=== PATIENT | female | born 1990 | race American Indian/Alaskan Native ===

== ENCOUNTER 2020-03-24 17:32 | Emergency (ER) | payer SELFPAY ==
[2020-03-24 17:46] VITALS: BP 128/78
[2020-03-24] MEDS ORDERED: LIDOCAINE-MPF (1%) 10 MG/1 ML VIAL 5 ML INFILTRATI ONE (18:52)
--- NOTE | 2020-03-24 19:22 | Emergency Department Report ---
ED Female HPI - General Chief complaint: Urogenital-Female Stated complaint: VAG PIERCING INSIDE URETHRA Time Seen by Provider: 03/24/20 18:44 Source: patient Mode of arrival: Ambulatory Limitations: No Limitations - History of Present Illness Initial comments: 29-year-old -[place] female presents to the emergency room stating that her piercing is stuck in her clitoris. Patient states she noticed that 2 days ago. Patient reports the pain is just minimal 3 out of 10. Patient states that she did go to the tattoo and piercing store but they were not able to do it. Patient denies any past medical history currently takes no medications on a daily basis and has no known drug allergies. - Related Data Allergies Allergy/AdvReac Type Severity Reaction Status Date / Time No Known Allergies Allergy Unverified 03/24/20 18:01 ED Review of Systems ROS: Stated complaint: VAG PIERCING INSIDE URETHRA Other details as noted in HPI ED Past Medical Hx - Past Medical History Previous Medical History?: No - Surgical History Past Surgical History?: No - Social History Smoking Status: Never Smoker Substance Use Type: None ED Physical Exam - General Limitations: No Limitations General appearance: alert, in no apparent distress - Head Head exam: Present: atraumatic, normocephalic - Eye Eye exam: Present: normal appearance - ENT ENT exam: Present: normal exam - Neck Neck exam: Present: normal inspection, full ROM - External exam: Present: other (Piercing on the zhang of the cloritus). Absent: erythema, swelling - Extremities Exam Extremities exam: Present: normal inspection, full ROM - Back Exam Back exam: Present: normal inspection - Neurological Exam Neurological exam: Present: alert, oriented X3, normal gait - Psychiatric Psychiatric exam: Present: normal affect, normal mood - Skin Skin exam: Present: warm, dry, intact, normal color. Absent: rash ED Course Vital Signs 03/24/20 17:44 Temperature 98.7 F Pulse Rate 80 Respiratory 15 Rate Blood Pressure 128/78 O2 Sat by Pulse 99 Oximetry - Procedure Description Procedures done: Piercing from clitoris: Area was cleaned with Betadine 2 cc of lidocaine 1% injected to the zhang of the clitoris. 16 blade scalpel used to make a very small incision and piercing was wiggled out. Very minimal bleeding patient tolerated well ED Medical Decision Making - Medical Decision Making 29-year-old -[place] female presents to the emergency room stating that her piercing is stuck in her clitoris. Patient states she noticed that 2 days ago. Patient reports the pain is just minimal 3 out of 10. Patient states that she did go to the tattoo and piercing store but they were not able to do it. Patient denies any past medical history currently takes no medications on a daily basis and has no known drug allergies. Incision 1 cc into the clitoris piercing was removed without any complications no bleeding no swelling patient tolerated well Critical care attestation.: If time is entered above; I have spent that time in minutes in the direct care of this critically ill patient, excluding procedure time. ED Disposition Clinical Impression: Clitoral irritation Disposition: DC-01 TO HOME OR SELFCARE Is pt being admited?: No Does the pt Need Aspirin: No Condition: Stable Additional Instructions: Keep area clean and dry. Referrals: PRIMARY CARE, [Primary Care Provider] - 3-5 Days
== END 2020-03-24 20:27 | disposition home or self-care (01) ==
LOC: ED 17:32
DX: N76.4 Abscess of vulva (principal)
CPT/HCPCS: 99282